=== PATIENT | male | born 1980 | race Caucasian/White ===

== ENCOUNTER 2016-05-03 11:22 | Emergency (ER) | payer SELFPAY ==
--- NOTE | ~2016-05-03 | ER ---
PATIENT'S NAME: DWAYNE BAUMAN [facility] AGE: 36 Y [address] ROOM: [place] [address] LOCATION: ED ADMIT DATE: 05/03/2016 ER/Outpatient Report DISCHARGE DATE: 05/03/2016 FAMILY PHYSICIAN: , GRIS ATTENDING PHYSICIAN: Penelope Castro Time of Arrival: 1122 hours. Time Seen: 1132 hours. IDENTIFICATION: A 36-year-old male. CHIEF COMPLAINT: High blood pressure. HISTORY OF PRESENT ILLNESS: The patient is a 36-year-old male who was brought over from [facility] for high blood pressure. This patient was over at [facility] for his physical for the [place] that he is in. He is originally from [place], he has been in the [place] since Monday apparently for tax evasion. The patient was seen for the physical and found to have a blood pressure elevated at 194/125, minimal headache, no other symptoms, and was taken over here. He has no chest pain. Minimal headache. No numbness or tingling. He has a history of hypertension and Kkkfs-Qtaizixwo-Gnikg. He has not yet taken his blood pressure medication today. It is his birthday and he has been running around. ALLERGIES: TO TYLENOL AND WARFARIN. CURRENT MEDICATIONS: 1. Aspirin 81 mg daily. 2. Clonidine ER 0.2 mg patch, which he does not have at this time and is not applied. 3. Diltiazem ER 24-hour 300 mg daily. 4. Flecainide 100 mg b.i.d. 5. Ivabradine 5 mg 2 tablets twice daily. 6. Labetalol 200 mg 3 times a day. 7. Lisinopril 20 mg daily. 8. Magnesium oxide 400 mg daily. 9. Omeprazole 20 mg daily. 10. Oxcarbazepine 150 mg 3 times a day. 11. Promethazine IM p.r.n. 12. Rivaroxaban 20 mg daily. PATIENT'S NAME: DWAYNE BAUMAN [facility] AGE: 36 Y [address] ROOM: [place] [address] LOCATION: ED ADMIT DATE: 05/03/2016 ER/Outpatient Report DISCHARGE DATE: 05/03/2016 FAMILY PHYSICIAN: PHYSICIAN, NO ATTENDING PHYSICIAN: Penelope Castro MEDICAL PROBLEMS: Hypertension, Ogmmx-Jslfmldps-Ijyem, and atrial fibrillation since childhood. PRIOR SURGERIES: Ablation ages 16 and 4 years ago. Pacemaker one month ago. He has had thumb surgery and knee surgery. SOCIAL HISTORY: The patient is from [place], here at the [place] for tax evasion. Dr. 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 Foster is his primary care physician. Tobacco use, denies. Alcohol use, denies. Drug use, denies. REVIEW OF SYSTEMS: All systems reviewed. He has a slight headache. He wears glasses. He denies any hearing problems. No nasal drainage. No neck pain. No chest pain. No cough or shortness of breath. No abdominal pain, nausea, or vomiting. No urinating problems. No numbness, tingling, or weakness. No skin rashes. No history of diabetes or thyroid abnormalities. No history of bleeding diathesis or blood clots. Psych, no psych history on review of systems. PHYSICAL EXAMINATION: VITAL SIGNS: Height 6 feet 8 inches, weight 114.5 kg, blood pressure 180/128, pulse 81, respirations 16, temperature 98.5, sats 97% on room air. GENERAL: A pleasant 36-year-old male in no acute distress. HEENT: Head; normocephalic, atraumatic. Ears; TMs translucent AU. Eyes; pupils equal and reactive to light and accommodation. Extraocular movements intact. Nose, mucosa pink. No lesions. Mouth, no lesions. Pharynx, benign. NECK: Supple. No lymphadenopathy. LUNGS: Clear to auscultation. HEART: Regular rate and rhythm. ABDOMEN: Bowel sounds present. Soft, nondistended, nontender. EXTREMITIES: Full range of motion. No deformities noted. No calf tenderness. NEUROLOGIC: The patient alert oriented x4. Cranial nerves 2 through 12 grossly intact. Motor strength 5/5 throughout. Sensation is intact to light touch. EMERGENCY DEPARTMENT COURSE: Recheck blood pressure 178/124, the patient was given clonidine 0.1 mg p.o. and labetalol 200 mg p.o. and observed. His headache resolved. His blood pressure improved to 161/99, he felt much better and wanted to go home and take his own medications. LABORATORY DATA AND X-RAYS: EKG; normal sinus rhythm at 80 beats per minute, no acute ST elevation or PATIENT'S NAME: DWAYNE BAUMAN [facility] AGE: 36 Y [address] ROOM: [place], [place] [address] LOCATION: [facility] ADMIT DATE: 05/03/2016 ER/Outpatient Report DISCHARGE DATE: 05/03/2016 FAMILY PHYSICIAN: PHYSICIAN, NO ATTENDING PHYSICIAN: Penelope Castro depression, normal EKG. Hemoglobin 15, hematocrit 42.7, platelets 224, white count 5.1 with normal differential. INR 1.0. Urine drug screen negative. Chemistry panel is unremarkable. Alcohol level less than 0.010. CPK 115, CK- MB 1.2, troponin I less than 0.040. TSH 2.870. UA negative. IMPRESSION: Hypertensive urgency. PLAN: Continue all medications as ordered. Follow up if pain, palpitations, short of breath, or problems. Follow up for his physical examination again as scheduled tomorrow. Follow up with his physician of choice in 1 to 2 days. Follow up sooner if any problems or concerns. The patient understands and agrees, and all questions have been answered. MD MELANIE RENE/radha /[id number] d: 05/03/162321 t: 05/05/16 1704, OUTPATIENT REPORT
[2016-05-03 12:12] LABS: BASOPHIL # 0.1 K/uL (0.0-0.2); EOSINOPHIL # 0.1 K/uL (0.0-0.5); EOSINOPHIL % 1.2 %; HEMATOCRIT 42.7 % (37.0-53.0); IMMATURE GRANULOCYTE % 0.6 %; LYMPHOCYTE # 1.2 K/uL (0.8-4.0); LYMPHOCYTE % 22.9 %; MCH 29.2 pg (27.0-34.0); MCHC 35.1 gm/dL (32.0-36.5); MCV 83.1 fl (83.0-98.0); MONOCYTE # 0.4 K/uL (0.0-1.0); MONOCYTE % 7.6 %; MPV 9.9 fl (9.4-12.4); NEUTROPHIL # (ANC) 3.4 K/uL (1.4-9.0); NEUTROPHIL % 66.7 %; NRBC % 0 /100WBC (0-0.00); PLATELET COUNT 224 K/uL (150-450); RBC 5.14 M/uL (4.00-6.00); RDW-CV 12.8 % (11.9-14.6); WBC 5.1 K/uL (4.0-11.0)
[2016-05-03 12:21] LABS: PROTIME 10.1 SECONDS (9.6-11.1); PTT 25 SECONDS (25-32)
[2016-05-03 12:27] LABS: BILIRUBIN URINE NEGATIVE (NEGATIVE); BLOOD URINE NEGATIVE /UL (NEGATIVE); COLOR URINE YELLOW (YELLOW); GLUCOSE URINE NEGATIVE (NEGATIVE); KETONE URINE NEGATIVE (NEGATIVE); LEUKOCYTES URINE 25 /UL (NEGATIVE); NITRITE URINE NEGATIVE (NEGATIVE); PROTEIN URINE 15 mg/dL (NEGATIVE); SPEC GRAVITY URINE 1.015 (1.003-1.035); TURBIDITY URINE CLEAR (CLEAR); UROBILINOGEN URINE NORMAL (NORMAL)
[2016-05-03 12:34] LABS: ALBUMIN 4.3 gm/dL (3.5-5.0); ALK PHOS 56 IU/L (33-138); ALT 19 IU/L (12-78); ANION GAP 12.9 (10.0-19.0); AST 17 IU/L (10-40); BLOOD UREA NITROGEN 13 mg/dL (6-24); CALCIUM 8.7 mg/dL (8.5-10.5); CHLORIDE 107 mMol/L (96-110); CO2 27 mMol/L (22-32); CPK 115 IU/L (35-332); CREATININE 0.9 mg/dL (0.6-1.3); ESTIMATED GFR (MDRD EQUATION) > 60; POTASSIUM 3.9 mMol/L (3.7-5.1); SODIUM 143 mMol/L (135-145); TOTAL BILIRUBIN 0.6 mg/dL (0.0-1.5); TOTAL PROTEIN 7.1 g/dL (6.0-8.4)
[2016-05-03 12:42] LABS: RBC URINE NEGATIVE #/HPF (NEGATIVE); WBC URINE 0-2 #/HPF (NEGATIVE)
[2016-05-03 12:45] LABS: EPITHELIAL URINE 0-2 #/HPF (NEGATIVE)
[2016-05-03 12:47] LABS: BACTERIA URINE RARE (NEGATIVE); BARBITURATE NEGATIVE (NEGATIVE); COCAINE NEGATIVE (NEGATIVE); MUCUS URINE NEGATIVE (NEGATIVE); OPIATES NEGATIVE (NEGATIVE)
[2016-05-03 12:49] LABS: AMPHETAMINE NEGATIVE (NEGATIVE)
== END 2016-05-03 13:55 | disposition disaster alternative care site (69) ==
LOC: GMED 11:22
PROVIDERS: Family Medicine
DX: I16.0 Hypertensive urgency (principal); I45.6 Pre-excitation syndrome; I48.91 Unspecified atrial fibrillation; Z98.890 Other specified postprocedural states; I10 Essential (primary) hypertension; Z79.82 Long term (current) use of aspirin; Z79.899 Other long term (current) drug therapy; Z88.8 Allergy status to other drugs, medicaments and biological substances; Z88.6 Allergy status to analgesic agent
CPT/HCPCS: A9270; G0480

== ENCOUNTER 2016-06-04 16:07 | Emergency (ER) | payer SELFPAY ==
--- NOTE | ~2016-06-04 | ER ---
PATIENT'S NAME: DWAYNE BAUMAN [facility] AGE: 36 Y [address] ROOM: [place] [address] LOCATION: [facility] ADMIT DATE: 06/04/2016 ER/Outpatient Report DISCHARGE DATE: 06/04/2016 FAMILY PHYSICIAN: PHYSICIAN, NO ATTENDING PHYSICIAN: Brandon Buitrago Time of Arrival: 1607 hours. Time of Exam: 1607 hours. CHIEF COMPLAINT: Rapid heart rate. HISTORY OF PRESENT ILLNESS: The patient reports approximately 20 minutes prior to arrival, he felt as though his heart was beating extremely fast and felt some tightness in his chest. He did not feel short of breath. Concern that this has occurred several times in the last week. 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 ALLERGIES: TYLENOL AND COUMADIN. CURRENT MEDICATIONS: On his chart and reviewed by me. PAST MEDICAL HISTORY: Kvjgl-Qigwcdtpa-Fxupx syndrome. PAST SURGERIES: Pacemaker. He has had ablation to the heart done twice and had knee surgery. SOCIAL HISTORY: Smokes 4 to 5 cigarettes per day. Denies use of drugs or alcohol. REVIEW OF SYSTEMS: All negative other than those mentioned in the HPI. PHYSICAL EXAMINATION: VITAL SIGNS: He weighed 124.1 kg, blood pressure initially was 225/122, pulse of 104, respirations 18, temperature of 98.7, O2 saturation is 98% on room air. [place] Coma Scale is 15. GENERAL: He is awake, alert, and oriented x4. SKIN: [place], warm, and dry. PATIENT'S NAME: DWAYNE BAUMAN [facility] AGE: 36 Y [address] ROOM: [place] [address] LOCATION: [facility] ADMIT DATE: 06/04/2016 ER/Outpatient Report DISCHARGE DATE: 06/04/2016 FAMILY PHYSICIAN: PHYSICIAN, NO ATTENDING PHYSICIAN: Brandon Buitrago RESPIRATIONS: Even and nonlabored. Lung sounds are clear throughout. HEART: Regular rate and rhythm. ABDOMEN: Soft, nondistended. Bowel sounds are present. No peripheral edema noted. DIAGNOSTIC DATA: EKG was completed. Heart rate was 90, shows the sinus rhythm. CBC was completed and within normal limits. Chem panel was done, potassium 3.5, sodium is 143 and chloride 109. Cardiac enzymes are negative. EMERGENCY DEPARTMENT COURSE: He was monitored. Blood pressure did come down nicely 172/91, heart rate remained in a sinus rhythm throughout the ER stay. The patient denied having any pain. IMPRESSION: Episode of rapid heart. PLAN: Home, rest, fluids. Continue his current medications. He was given the names of the [facility] and encouraged him to find a primary provider for further healthcare needs. He is to make an appointment for checkup within the next 2 to 3 days. He is welcome to return to the ER as needed. He verbalized understanding. SD CARRILLO APRN FOR MD ANDREW MCGEE/radha /[id number] d: 06/05/16 0107 t: 06/22/16 0902, OUTPATIENT REPORT
[2016-06-04 16:29] LABS: BASOPHIL % 0.7 %; EOSINOPHIL # 0.1 K/uL (0.0-0.5); EOSINOPHIL % 2.2 %; HEMATOCRIT 40.9 % (37.0-53.0); HEMOGLOBIN 14.2 g/dL (12.0-17.0); IMMATURE GRANULOCYTE % 0.4 %; LYMPHOCYTE # 1.4 K/uL (0.8-4.0); LYMPHOCYTE % 25.9 %; MCH 29.2 pg (27.0-34.0); MCHC 34.7 gm/dL (32.0-36.5); MONOCYTE # 0.5 K/uL (0.0-1.0); MONOCYTE % 9.8 %; MPV 10.2 fl (9.4-12.4); NEUTROPHIL # (ANC) 3.3 K/uL (1.4-9.0); NRBC % 0 /100WBC (0-0.00); PLATELET COUNT 204 K/uL (150-450); RBC 4.87 M/uL (4.00-6.00); RDW-CV 13.4 % (11.9-14.6); WBC 5.4 K/uL (4.0-11.0)
[2016-06-04 16:47] LABS: ALBUMIN 3.9 gm/dL (3.5-5.0); ALK PHOS 50 IU/L (33-138); ALT 41 IU/L (12-78); ANION GAP 13.5 (10.0-19.0); AST 24 IU/L (10-40); BLOOD UREA NITROGEN 17 mg/dL (6-24); CALCIUM 8.2 mg/dL (8.5-10.5); CHLORIDE 109 mMol/L (96-110); CO2 24 mMol/L (22-32); CPK 298 IU/L (35-332); ESTIMATED GFR (MDRD EQUATION) > 60; POTASSIUM 3.5 mMol/L (3.7-5.1); SODIUM 143 mMol/L (135-145); TOTAL BILIRUBIN 0.5 mg/dL (0.0-1.5); TOTAL PROTEIN 6.7 g/dL (6.0-8.4)
== END 2016-06-04 17:18 | disposition disaster alternative care site (69) ==
LOC: GMED 16:07
PROVIDERS: Nurse Practitioner Family
DX: R00.0 Tachycardia, unspecified (principal); F17.210 Nicotine dependence, cigarettes, uncomplicated; Z88.6 Allergy status to analgesic agent; Z88.8 Allergy status to other drugs, medicaments and biological substances; Z95.0 Presence of cardiac pacemaker

== ENCOUNTER → 2016-06-28 | Outpatient (CLI) | payer SELFPAY ==
--- NOTE | ~2016-06-28 | ECHO ---
Transthoracic Echocardiography Report (TTE) Demographics Patient Name DWAYNE BAUMAN Date of Study 06/28/2016 Patient Number [id number] Visit Number [id number] Date of 1980 Room Number Accession Number [id number] Gender Male Age 36 year(s) Referring Abner Jacob MD Hybrid Tester Esme Barrett [facility], Physician RVT Physician Interpreting Radha Newton Sand Mixer Operator Physician Supervising Ordering Physician Radha Newton MD/ANDREW GIRALDO Nurse Stress Fire Prevention Research Engineer Conclusions Contractility Score Summary Normal Left Ventricular contractility was noted. Summary The estimated left ventricular ejection fraction is 60%. Mild septal left ventricular hypertrophy. Diastolic assessment reveals normal relaxation, Grade I diastolic dysfunction. Device lead noted in the right ventricle. The right atrium is mildly dilated. Procedure Type of Study TTE procedure:2D Echocardiogram. Procedure Date Date: 06/28/2016 Start: 10:56 AM Study Location: Echo Lab Technical Quality: Good visualization Appropriate Use Criteria: 9 Patient Status: Routine Rhythm: Within normal limits HR: 77 bpm M-Mode/2D Measurements LV Diastolic Dimension: 5.97 cm LV Systolic Dimension: 3.59 cm LV Septum Diastolic: 1.23 cm LV Septum Systolic: 4.94 cm LV PW Diastolic: 1.13 cm AO Root Dimension: 2.8 cm Cardiac Output: 7.56 l/min AV Cusp Separation: 2.5 cm RV Diastolic Dimension: 2.92 cm LA volume: 74 ml IVC Inspiration: 0.3 cm LVOT: 2.5 cm RV Base: 4.14 cm LVOT VTI: 20 cm RV Mid: 2.76 cm LV Stroke volume: 98.12 ml TAPSE: 2.13 cm TDI-S': 11.3 cm/s Doppler Measurements AV Peak Velocity: 1.25 m/s MV Peak E-Wave: 0.72 m/s AV Peak Gradient: 6.25 mmHg MV Peak A-Wave: 0.81 m/s AV Mean Gradient: 3 mmHg MV E/A Ratio: 0.88 LVOT Peak Velocity: 0.9 m/s MV P1/2t: 38 msec TR Gradient:30.91 mmHg PV Peak Velocity: 0.93 m/s Estimated RAP:3 mmHg PV Peak Gradient: 3.46 mmHg Estimated RVSP: 34 mmHg Estimated PASP: 33.91 mmHg E' Septal Velocity: 0.11 m/s A' Septal Velocity: 0.1 m/s MV E/E' Ratio: 11 Findings Left Ventricle The estimated left ventricular ejection fraction is 60%. Mild septal left ventricular hypertrophy. Diastolic assessment reveals normal relaxation, Grade I diastolic dysfunction. Right Ventricle Device lead noted in the right ventricle. Left Atrium The left atrium is mildly dilated by LA volume index measurement. Right Atrium The right atrium is mildly dilated. Device lead seen in the right atrium. Mitral Valve Trivial mitral regurgitation by color Doppler. Aortic Valve Normal aortic valve structure and function. Tricuspid Valve Mild tricuspid regurgitation by color Doppler. Pulmonic Valve Normal pulmonic valve structure and function. Pericardial Effusion No evidence of pericardial effusion. Miscellaneous Visualized portions of the aortic root and ascending aorta appear normal in size. Pleural Effusion No evidence of pleural effusion. Contractility Score LV regional wall motion:(0-Non visualized 1-Normal 2-Hypokinesis 3-Akinesis 4-Dyskinesis 5-Aneurysm) Signature dtt: Lamar Garcia dtd: 06/28/16 1056 Physician Self Edit
== END | disposition disaster alternative care site (69) ==
LOC: GCAR 10:50
DX: I10 Essential (primary) hypertension (principal); G40.209 Localization-related (focal) (partial) symptomatic epilepsy and epileptic syndromes with complex partial seizures, not intractable, without status epilepticus; I51.7 Cardiomegaly; I72.9 Aneurysm of unspecified site; R00.0 Tachycardia, unspecified

== ENCOUNTER → 2016-06-29 | Outpatient (CLI) | payer SELFPAY ==
[2016-06-29 12:23] LABS: BASOPHIL % 0.8 %; EOSINOPHIL # 0.2 K/uL (0.0-0.5); EOSINOPHIL % 4.2 %; HEMATOCRIT 44.2 % (37.0-53.0); HEMOGLOBIN 15.2 g/dL (12.0-17.0); IMMATURE GRANULOCYTE % 0.4 %; LYMPHOCYTE # 1.3 K/uL (0.8-4.0); LYMPHOCYTE % 27.3 %; MCH 29.3 pg (27.0-34.0); MCHC 34.4 gm/dL (32.0-36.5); MCV 85.2 fl (83.0-98.0); MONOCYTE # 0.4 K/uL (0.0-1.0); MONOCYTE % 8.5 %; MPV 10.7 fl (9.4-12.4); NEUTROPHIL # (ANC) 2.8 K/uL (1.4-9.0); NEUTROPHIL % 58.8 %; NRBC % 0 /100WBC (0-0.00); PLATELET COUNT 189 K/uL (150-450); RBC 5.19 M/uL (4.00-6.00); RDW-CV 13.4 % (11.9-14.6); WBC 4.8 K/uL (4.0-11.0)
[2016-06-29 12:31] LABS: ANION GAP 10.9 (10.0-19.0); BLOOD UREA NITROGEN 13 mg/dL (6-24); CALCIUM 8.6 mg/dL (8.5-10.5); CHLORIDE 107 mMol/L (96-110); CO2 29 mMol/L (22-32); CREATININE 0.8 mg/dL (0.6-1.3); ESTIMATED GFR (MDRD EQUATION) > 60; POTASSIUM 3.9 mMol/L (3.7-5.1); SODIUM 143 mMol/L (135-145)
== END | disposition disaster alternative care site (69) ==
LOC: LNHI 12:18
PROVIDERS: Internal Medicine Interventional Cardiology
DX: I10 Essential (primary) hypertension (principal)

== ENCOUNTER → 2016-06-30 | Outpatient (CLI) | payer SELFPAY | END | disposition disaster alternative care site (69) | LOC: GRAD 08:19 | DX: I10 Essential (primary) hypertension (principal); G40.209 Localization-related (focal) (partial) symptomatic epilepsy and epileptic syndromes with complex partial seizures, not intractable, without status epilepticus; R00.0 Tachycardia, unspecified ==

== ENCOUNTER → 2016-07-14 | Outpatient (CLI) | payer SELFPAY | END | disposition disaster alternative care site (69) | LOC: GRAD 16:24 | DX: R30.9 Painful micturition, unspecified (principal); R10.9 Unspecified abdominal pain; M54.9 Dorsalgia, unspecified ==

== ENCOUNTER 2016-07-21 16:26 | Emergency (ER) | payer SELFPAY ==
--- NOTE | ~2016-07-21 | ER ---
PATIENT'S NAME: DWAYNE BAUMAN [facility] AGE: 36 Y [address] ROOM: [place] [address] LOCATION: [facility] ADMIT DATE: 07/21/2016 ER/Outpatient Report DISCHARGE DATE: 07/21/2016 FAMILY PHYSICIAN: Cecil Levine MD ATTENDING PHYSICIAN: Brandon Sterling CHIEF COMPLAINT: Palpitations. HISTORY OF PRESENT ILLNESS: The patient presents to the ER via private vehicle for episode of palpitations, sweating, and decreased energy. The patient has a history of SVT and has a pacer. His symptoms started at approximately 2:00 p.m. today. He uses reading device to read his pacer recordings and sent those to his digital technician at [facility]. He was instructed to come directly to the ER, which he did. 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 The patient also has hypertension. He has an appointment tomorrow morning at 10:30 a.m. with his sanitary engineer in [place] for further evaluation of this issue. PAST MEDICAL HISTORY: Documented on the record and reviewed by me. SOCIAL HISTORY: Documented on the record and reviewed by me. MEDICATIONS: Documented on the record and reviewed by me. ALLERGIES: DOCUMENTED ON THE RECORD AND REVIEWED BY ME. REVIEW OF SYSTEMS: All systems reviewed and negative except as noted in the HPI. PHYSICAL EXAMINATION: VITAL SIGNS: Blood pressure 175/106, pulse is 103, respiratory rate 18, temperature 98, and SpO2 is 98% on room air. GENERAL: Age-appropriate male, tired appearance, slightly flushed, minimally diaphoretic on the forehead. NEUROLOGIC: Awake and alert. GCS 15. No focal deficits. No asymmetry. HEENT: Normocephalic and atraumatic. Eyes are PERRL. Oropharynx is clear. NECK: Supple. Trachea is midline CHEST/HEART: Regular rate and rhythm with no murmurs. PATIENT'S NAME: DWAYNE BAUMAN [facility] AGE: 36 Y [address] ROOM: [place] [address] LOCATION: [facility] ADMIT DATE: 07/21/2016 ER/Outpatient Report DISCHARGE DATE: 07/21/2016 FAMILY PHYSICIAN: Cecil Levine MD ATTENDING PHYSICIAN: Brandon Sterling LUNGS: Clear to auscultation bilateral with no rhonchi, wheezes, or rales. ABDOMEN: Soft, nontender, and nondistended. No rebound or guarding. BACK: Normal to inspection palpation. EXTREMITIES: Warm and well perfused with no edema or deformities. SKIN: Clean and intact. No rashes, slightly diaphoretic on the head; otherwise, dry. On repeat exam, normal skin exam. LABORATORY DATA AND X-RAYS: Chest x-ray unremarkable per my read. Chest CT PE protocol unremarkable per Radiology. Labs: Lactate is 4.3. CMS without appreciable abnormality other than a slightly elevated AST of 41 and a potassium of 3.4. CBC without abnormality. CK-MB and troponin are not elevated. INR is less than 1. D-dimer 0.97. EKG: Sinus tachycardia at a rate of 100. No other acute abnormalities. Labs from clinic were reviewed. Pacer data were reviewed. IMPRESSION: Paroxysmal supraventricular tachycardia, it is spontaneously resolved. EMERGENCY DEPARTMENT COURSE: The patient was seen and evaluated as above. His symptoms started at rest. He is on multiple antidysrhythmic medications for rate control. He was given a liter of fluid to treat his lactic acidemia without lactic acidosis. My believe is that his elevated lactate is secondary to his SVT. He was feeling much better and had normal vital signs. I discussed the case with Dr. Garcia, on-call digital technician as I could not contact his typical Cardiology Group. We agreed that the safest thing would be for observation in the hospital [facility]; however, the patient felt that with the difficulty obtaining his EP appointment and it being in the morning, he would not want to be put in a choice of having to leave the hospital early to make his appointment versus missing his appointment. He states that he would have no issues coming back, whatsoever. He feels, otherwise, okay. I think this is a reasonable plan for this gentleman. I believe he understands the risks and benefits that he is chosen. He has agreed to return immediately, if any worsening. BRANDON STERLING MD PATIENT'S NAME: DWAYNE BAUMAN [facility] AGE: 36 Y [address] ROOM: [place] [address] LOCATION: [facility] ADMIT DATE: 07/21/2016 ER/Outpatient Report DISCHARGE DATE: 07/21/2016 FAMILY PHYSICIAN: Cecil Levine MD ATTENDING PHYSICIAN: Brandon Sterling/radha /[id number] d: 07/22/16 0849 t: 08/01/16 0709, OUTPATIENT REPORT
[2016-07-21 17:07] LABS: BASOPHIL % 0.6 %; EOSINOPHIL # 0.1 K/uL (0.0-0.5); EOSINOPHIL % 2.2 %; HEMATOCRIT 41.3 % (37.0-53.0); HEMOGLOBIN 14.6 g/dL (12.0-17.0); IMMATURE GRANULOCYTE # 0.1 K/uL (0.0-0.3); IMMATURE GRANULOCYTE % 0.8 %; LYMPHOCYTE # 1.1 K/uL (0.8-4.0); LYMPHOCYTE % 16.6 %; MCHC 35.4 gm/dL (32.0-36.5); MONOCYTE # 0.7 K/uL (0.0-1.0); MONOCYTE % 10.4 %; MPV 10.1 fl (9.4-12.4); NEUTROPHIL # (ANC) 4.5 K/uL (1.4-9.0); NEUTROPHIL % 69.4 %; NRBC % 0 /100WBC (0-0.00); PLATELET COUNT 195 K/uL (150-450); RBC 4.86 M/uL (4.00-6.00); RDW-CV 13.6 % (11.9-14.6); WBC 6.5 K/uL (4.0-11.0)
[2016-07-21 17:23] LABS: INR - (THERAPEUTIC) 0.91 (0.92-1.07); PROTIME 9.5 SECONDS (9.8-11.4); PTT 22 SECONDS (25-32)
[2016-07-21 17:27] LABS: ALBUMIN 3.9 gm/dL (3.5-5.0); ALK PHOS 53 IU/L (33-138); ALT 48 IU/L (12-78); ANION GAP 12.4 (10.0-19.0); AST 41 IU/L (10-40); BLOOD UREA NITROGEN 10 mg/dL (6-24); CALCIUM 9.2 mg/dL (8.5-10.5); CHLORIDE 106 mMol/L (96-110); CO2 26 mMol/L (22-32); CREATININE 1.2 mg/dL (0.6-1.3); ESTIMATED GFR (MDRD EQUATION) > 60; POTASSIUM 3.4 mMol/L (3.7-5.1); SODIUM 141 mMol/L (135-145); TOTAL BILIRUBIN 0.8 mg/dL (0.0-1.5); TOTAL PROTEIN 6.4 g/dL (6.0-8.4)
== END 2016-07-21 18:25 | disposition disaster alternative care site (69) ==
LOC: GMED 16:26
PROVIDERS: Emergency Medicine
DX: I47.1 Supraventricular tachycardia (principal); E87.2 Acidosis; I10 Essential (primary) hypertension; I45.6 Pre-excitation syndrome; D68.2 Hereditary deficiency of other clotting factors; F17.210 Nicotine dependence, cigarettes, uncomplicated; Z88.8 Allergy status to other drugs, medicaments and biological substances; Z86.718 Personal history of other venous thrombosis and embolism; Z79.01 Long term (current) use of anticoagulants; Z86.711 Personal history of pulmonary embolism
CPT/HCPCS: J2001; J7030; Q9967